=== PATIENT | female | born 1955 | race Caucasian/White ===

== ENCOUNTER → 2024-05-12 09:36 | Outpatient (BNVA) | payer OTHER, MEDICAID, SELFPAY | PROVIDERS: PCP Nurse Practitioner Family; Referring Provider Nurse Practitioner Family; Visit Provider Student in an Organized Health Care Education/Training Program | DX: M17.11 Unilateral primary osteoarthritis, right knee (principal) | CPT/HCPCS: 20610; 99203; J1010 ==

== ENCOUNTER → 2024-09-25 09:05 | Outpatient (BNVA) | payer OTHER, MEDICAID, SELFPAY | PROVIDERS: PCP Nurse Practitioner Family; Referring Provider Nurse Practitioner Family; Visit Provider Student in an Organized Health Care Education/Training Program | DX: M17.11 Unilateral primary osteoarthritis, right knee (principal) | CPT/HCPCS: 99214 ==

== ENCOUNTER 2024-11-13 01:52 | Outpatient (CLI) | payer MEDICARE, MEDICAID, SELFPAY ==
[2024-11-13 10:33] LABS: HCT 41.3 % (36.0-46.0); HGB 12.7 g/dL (11.2-15.7); MCH 27.1 pg (27.0-33.0); MCHC 30.8 % (32.0-36.0); MCV 88 fL (80-95); MPV 10.6 fL (8.0-11.0); Platelet Count 276 10^3/uL (130-400); RBC 4.68 10^6/uL (3.93-5.22); RDW 14.8 % (11.7-14.6); RDW-SD 48.1 fL; WBC 6.05 10^3/uL (4.4-10.8)
[2024-11-13 10:43] LABS: Anion Gap 6.3 mmol/L (3-11); BUN 25 mg/dL (7-18); CO2 30.7 mmol/L (21.0-32.0); CREATININE 1.2 mg/dL (0.55-1.02); Calcium 9.7 mg/dL (8.5-10.1); Chloride 100 mmol/L (98-107); Glucose 96 mg/dL (74-106); Potassium 4.1 mmol/L (3.5-5.1); Sodium 137 mmol/L (136-145)
== END 2024-11-13 01:53 | disposition home or self-care (01) ==
LOC: LBO 01:54
PROVIDERS: PCP Nurse Practitioner Family; Visit Provider Student in an Organized Health Care Education/Training Program
DX: Z01.818 Encounter for other preprocedural examination (principal); M17.11 Unilateral primary osteoarthritis, right knee
CPT/HCPCS: 36415; 80048; 85027; 99024

== ENCOUNTER 2024-11-13 14:33 | Outpatient (CLI) | payer MEDICARE, MEDICAID, SELFPAY ==
--- NOTE | 2024-11-13 09:00 | DI.RAD_ITS ---
Exam(s) XR STANDING ALIGNMENT EXAM: XR STANDING ALIGNMENT CLINICAL HISTORY: TKR Planning. TECHNIQUE: 2D digital imaging was performed. Standing AP views were performed from the pelvis throu gh the ankles. COMPARISON: CR XR KNEE 3V RT from 02/26/2024 FINDINGS: BONES: No acute fracture is present. No bony destructive lesion is seen. Leg length discrepancy: The left femoral head projects approximately 5 millimeters superior to the r ight. JOINTS: Knees: Severe narrowing of the lateral femoral tibial joint space of the right knee with sangeeta articular spurring. The medial joint space is maintained. Mild valgus angulation. The left knee rubina int spaces are maintained. The ankle joints are unremarkable. The hip joints are unremarkable. SOFT TISSUE: Normal. IMPRESSION: Severe degenerative changes of the lateral femoral tibial joint space of the right knee. Mild overall leg length discrepancy. DATA REPOSITORY: RADIATION DOSE DELIVERED:
== END 2024-11-13 14:34 | disposition home or self-care (01) ==
LOC: DIORS 14:34
PROVIDERS: PCP Nurse Practitioner Family; Visit Provider Physician Assistant
DX: M17.11 Unilateral primary osteoarthritis, right knee (principal); Z01.818 Encounter for other preprocedural examination
CPT/HCPCS: 36415; 80048; 85027; 99024; 77073

== ENCOUNTER 2024-11-25 16:24 | Observation (INO) | payer MEDICARE, MEDICAID, SELFPAY ==
[2024-11-25] VITALS (50 sets, daily range): BP systolic 83–168; BP diastolic 43–102; PULSE 64–91; RESP 10–30; TEMP 35.8–37.1; O2SAT 80–98; BMI 32.1
--- NOTE | 2024-11-25 07:19 | PDOC.DSDIS_ITS ---
Date of service: 11/25/24 Discharge Plan Disposition Patient Disposition: Home W/Home Health Services Condition: Good Discharge Details Reason For Visit: Right knee DJD Admit Date/Time: 11/25/24 16:24 Admit Provider: Christian Bowles Attending Provider: Christian Bowles [facility] Hospital Course: Patient was admitted to the medical/surgical floor following the procedure. The surgery was tolerated well without any notable medical, surgical, or anesthetic complications. She did have some persistent hypoxemia with rest and some weakness in her legs along some nausea which resolved overnight. Mobilization began postoperatively. She was voiding spontaneously. Vitals were stable. Physical therapy worked with the patient and was cleared for discharge home. No acute medical issues. Pain was controlled on oral regimen. Home Meds and New Rx's Prescriptions: New celecoxib [Celebrex] 200 mg capsule 200 mg PO BID PRNQty: 60 0RF Rx Instructions: Take one tablet twice daily for pain and inflammation aspirin 81 mg tablet,delayed release (DR/EC) 81 mg PO BID 30 Days Qty: 60 0RF acetaminophen 500 mg tablet 1,000 mg PO Q8H PRN Qty: 90 0RF Rx Instructions: Take two tablets up to every 8 hours as needed for pain dexamethasone 4 mg tablet 4 mg PO DAILY Qty: 2 0RF Rx Instructions: Take one tablet once daily for two days docusate sodium [Colace] 100 mg capsule 100 mg PO BID Qty: 30 0RF gabapentin 300 mg capsule 300 mg PO QHS Qty: 14 0RF Rx Instructions: Take one tablet at bedtime oxycodone 5 mg tablet 5 mg PO Q4H PRNQty: 18 0RF Rx Instructions: Take one tablet up to every 4 hours as needed for severe postoperative pain Continued levothyroxine 50 mcg capsule 50 mcg PO DAILY lisinopril 10 mg tablet 10 mg PO DAILY omeprazole 20 mg capsule,delayed release(DR/EC) 20 mg PO DAILY Metamucil 3.4 gram/5.4 gram powder 1 tbsp PO DAILY Rx Instructions: mix into at least 8 oz of water or juice before administering diphenhydramine HCl [Allergy (diphenhydramine)] 25 mg capsule 25 mg PO QHS PRN Discontinued meloxicam 15 mg tablet 15 mg PO DAILY Discharge Instructions Additional Instructions: Total Knee Discharge Instructions Activity: The most important activity is to walk and to work on gentle motion (both flexion and extension). You should try to take short walks a few times a day. It is important that when resting you work on keeping the knee straight. Avoid putting a pillow behind the knee as this will encourage flexion. Work on range of motion exercises as provided by Physical Therapy. - Start outpatient physical therapy within 2 weeks. - You should wear the CINDY hose on both legs for 2 weeks. You may remove these at night. You may also use any compression sock in place of the CINDY hose. - Utilize [employer] to review exercises, see videos on exercises and obtain basic information pertaining to your surgery and your recovery. Dressing: Remove the Klever wrap by 2 days after your surgery and put on the CINDY stocking given to you from the hospital. Keep the surgical dressing (underneath the KLEVER wrap) in place for at least one week. After the first week it may be removed and replaced with light gauze and tape or nothing. The wound and dressing may get wet after 3 days but avoid soaking the dressing or otherwise it will need to be changed. Many people prefer covering the dressing with cling wrap (saran wrap) to minimize it from getting soaked. If it gets wet, just pat dry. If it starts to peel off then it will need to be changed. Medications: - You should take Tylenol and anti-inflammatory Celebrex as your primary pain control medications. If the Celebrex is too expensive or not covered, please call the office for another alternative (Advil/Ibuprofen or Naproxen/Aleve) - You have been prescribed a stronger pain medication Oxycodone for breakthrough pain, take as needed as prescribed. - You take a stomach acid reduction agent Omeprazole at baseline - continue with this medication to help reduce stomach acid and reflux. - You have been prescribed Gabapentin to take at night for restlessness and nerve pain. - You will be taking Aspirin 81mg twice a day for DVT prevention unless instructed otherwise. - You have also been prescribed Decadron to take to control post-operative nausea and pain. You will start this tomorrow. - If you have constipation you should take Colace (which has been prescribed) or Miralax (which is available [id number]). It takes most people 3-4 days to have a bowel movement. Follow-up: 2 weeks If you have any acute concerns or questions, please do not hesitate to contact the office at [phone]. You may contact Dr. Bowles with any questions after hours through the hospital at [phone] or on his cell phone at [phone]. 1. Encounter Date and Reason I certify that Jennifer Pickard was seen by Christian Bowles MD on 11/26/24 and that I had a [id number] encounter with this patient that meets the physician face to face encounter requirements. 2. Clinical Findings Supporting Skilled Need and Homebound Status I certify that home health services are medically necessary, include either intermittent penitentiary and/or physical/speech therapy, and that this patient is homebound in that absences from the home require considerable and taxing effort and are infrequent or of short duration, or are attributable to the need to receive medical care. [X] (a) Attached documentation from encounter provides clinical findings supporting skilled need and homebound status (including what assistance patient requires to leave the home). The encounter with the patient was in whole, or in part, for the following medical condition, which is the primary reason for home health care: Right knee DJD Intermediate: Physical Therapy: Kate would benefit from home health physical and Occupational Therapy as she recovers from knee replacement. She has notable weakness and gait abnormalities. She is weightbearing as tolerated with assistive devices. Initial physical therapy should focus on range of motion and quadricep strengthening as well as independent ambulation. Speech Therapy: Homebound: Kate is unable to leave her home unassisted due to weakness and gait dysfunction. 3. Certification and Authentication I certify that I composed the above information based on my clinical judgement relating to this patient's medical condition and, if applicable, clinical findings communicated to me by the NPP or inpatient physician who performed the Home Health Referral. All further orders will be obtained through Dr. Bowles Stand Alone Forms: Anesthesia Discharge Inst., Anes.Nerve Block Instructions, Tashia Liang ([facility]) Referrals: Christian Bowles MD [ [facility] STAFF PHYSICIAN] - 12/08/24 9:30 am Activity:: Activity as Tolerated Equipment/Supplies:: Walker Diet:: As Tolerated Discharge Orders Discharge Orders: Discharge Order (Routine); Ordered 11/26/24 Ordered By: Christian Bowles
--- NOTE | 2024-11-25 07:47 | W.ANESPRE ---
General Info Date of Service Date Performed: 11/25/24 Height: 5 ft Weight: 74.7 kg Body Mass Index (BMI): 32.1 Surgical Procedure: Operation Date: 11/25/24 08:25 Proposed Procedure Side Surgeon p Knee Total Arthroplasty w/OrthAlign Right Christian Bowles MD Actual Procedure Side Surgeon p Knee Total Arthroplasty w/OrthAlign Right Christian Bowles MD Pre-Op Diagnosis Post-Op Diagnosis Osteoarthritis of right knee Meds Allergies and Home Medications Allergies Allergy/AdvReac Type Severity Reaction Status Date / Time animal dander Allergy Mild sneezing Verified 11/24/24 12:34 house dust Allergy Mild sneezing Verified 11/24/24 12:34 Home Medication ?Medication ?Instructions ?Recorded levothyroxine 50 mcg capsule 50 mcg PO DAILY 03/05/24 lisinopril 10 mg tablet 10 mg PO DAILY 03/05/24 omeprazole 20 mg capsule,delayed 20 mg PO DAILY 03/05/24 release diphenhydramine HCl 25 mg capsule 25 mg PO QHS PRN 11/13/24 (Allergy (diphenhydramine)) psyllium husk 3.4 gram/5.4 gram 1 tbsp PO DAILY 11/13/24 oral powder (Metamucil) acetaminophen 500 mg tablet 1,000 mg (2 x 500 mg) PO Q8H PRN 11/25/24 pain #90 tabs aspirin 81 mg tablet,delayed 81 mg PO BID 30 days #60 tabs 11/25/24 release celecoxib 200 mg capsule (Celebrex) 200 mg PO BID PRN #60 caps 11/25/24 dexamethasone 4 mg tablet 4 mg PO DAILY #2 tabs 11/25/24 docusate sodium 100 mg capsule 100 mg PO BID #30 caps 11/25/24 (Colace) gabapentin 300 mg capsule 300 mg PO QHS #14 caps 11/25/24 oxycodone 5 mg tablet 5 mg PO Q4H PRN #18 tabs 11/25/24 Current Visit Medications: Current Medications Generic Name Dose Route Start Last Admin Trade Name Freq PRN Reason Stop Dose Admin Acetaminophen 1,000 mg 11/25/24 06:00 Acetaminophen 500 Mg Tab PO 11/25/24 23:59 PREOP HENRI Celecoxib 400 mg 11/25/24 06:00 Celecoxib 200 Mg Cap PO 11/25/24 23:59 PREOP HENRI Droperidol 0.625 mg 11/25/24 07:02 Droperidol 2.5 Mg/Ml Vial IVP 12/25/24 07:01 DIRECTED PRN Ephedrine Sulfate 0 mg 11/25/24 07:02 Ephedrine 25 Mg/5 Ml Syringe IVP 12/25/24 07:01 DIRECTED PRN Fentanyl 0 mcg 11/25/24 07:02 Fentanyl 100 Mcg/2 Ml Vial IVP 12/25/24 07:01 DIRECTED PRN Gabapentin 300 mg 11/25/24 06:00 Gabapentin 300 Mg Cap PO 11/25/24 23:59 PREOP HENRI Hydromorphone HCl 0 mg 11/25/24 07:02 Hydromorphone 2 Mg/Ml Syr IVP 12/25/24 07:01 DIRECTED PRN Hydromorphone HCl 0.5 mg 11/25/24 07:15 Hydromorphone 2 Mg/Ml Syr IVP 12/25/24 07:14 Q2H PRN PRN Ringer's Solution 1,000 mls @ 80 mls/hr 11/25/24 06:00 IV 11/25/24 23:59 INFUSION HENRI Cefazolin Sodium/Dextrose 2 gm in 50 mls @ 100 mls/hr 11/25/24 06:00 Ancef Duplex IVPB 11/25/24 23:59 PREOP HENRI Tranexamic Acid/Sodium Chloride 1,000 mg in 100 mls @ 600 mls/hr 11/25/24 06:00 IVPB 11/25/24 23:59 PREOP HENRI Cefazolin Sodium/Dextrose 1 gm in 50 mls @ 100 mls/hr 11/25/24 08:00 Ancef Duplex IVPB 11/26/24 00:29 Q8H HENRI IV Miscellaneous Supplies 1 each 11/25/24 06:00 Iv Access IV 11/25/24 23:59 DIRECTED HENRI Naloxone HCl 0 mg 11/25/24 07:02 Naloxone 0.4 Mg/Ml Vial IVP 12/25/24 07:01 PRN PRN Oxycodone HCl 0 mg 11/25/24 07:15 Oxycodone 5 Mg Tab PO 12/25/24 07:14 Q3H PRN PRN Pain Sodium Chloride 0 ml 11/25/24 06:00 Normal Saline Flush 10 Ml Syr IV 11/25/24 23:59 PRN PRN Sodium Chloride 0 ml 11/25/24 06:00 Normal Saline 10 Ml Vial IJ 11/25/24 23:59 DIRECTED PRN Sterile Water 0 ml 11/25/24 06:00 Water,Injection,Sterile 10 Ml Vial IJ 11/25/24 23:59 DIRECTED PRN PFSH Active Problems Active Problems: Problem Status Onset Code Hypertension Chronic I10 Osteoarthritis of right knee Acute M17.11 Hypothyroidism Chronic E03.9 Medical History Medical History Hemorrhage of rectum and anus Diverticular disease Allergic rhinitis Surgical History Surgical History 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 thyroidectomy Tobacco Smoking/Tobacco Use Status: Never Alcohol Alcohol Intake: never Substance Use Substance use: Never Substance use type: does not use Vital Signs and Lab Results Vital Signs Most Recent Vital Signs in EMR: Most Recent Vital Signs Temp Pulse Resp BP Pulse Ox 36.3 C L 76 18 155/56 H 97 11/25/24 07:21 11/25/24 07:21 11/25/24 07:21 11/25/24 07:21 11/25/24 07:21 Lab Results Blood Type / Crossmatch: No Data to Display Complete Blood Count: White Blood Count 6.05 10^3/uL (4.4-10.8) 11/13/24 10:25 Red Blood Count 4.68 10^6/uL (3.93-5.22) 11/13/24 10:25 Hemoglobin 12.7 g/dL (11.2-15.7) 11/13/24 10:25 Hematocrit 41.3 % (36.0-46.0) 11/13/24 10:25 Platelet Count 276 10^3/uL (130-400) 11/13/24 10:25 Complete Metabolic Panel: Sodium 137 mmol/L (136-145) 11/13/24 10:25 Potassium 4.1 mmol/L (3.5-5.1) 11/13/24 10:25 Chloride 100 mmol/L (98-107) 11/13/24 10:25 Carbon Dioxide 30.7 mmol/L (21.0-32.0) 11/13/24 10:25 BUN 25 mg/dL (7-18) H 11/13/24 10:25 Creatinine 1.2 mg/dL (0.55-1.02) H 11/13/24 10:25 Est GFR (CKD-EPI 2020) 49.00 (mL/min/1.73m2) 11/13/24 10:25 Calcium 9.7 mg/dL (8.5-10.1) 11/13/24 10:25 Glucose 96 mg/dL (74-106) 11/13/24 10:25 Liver Function Panel: No Data to Display Coagulation Panel: No Data to Display Cardiac Panel: No Data to Display Arterial Blood Gas: No Data to Display Venous Blood Gas: No Data to Display Pancreas Panel: No Data to Display Thyroid Panel: No Data to Display Infectious Disease: No Data to Display Blood Cultures: No Data to Display Toxicology Panel: No Data to Display Anesthesia Assessment and Plan Anesthesia History Personal History: Delayed Emergence Family History: No Family History of Anesthesia Complications Exercise Tolerance Exercise Tolerance: Metabolic Equivalents>4 Pertinent Negatives Pertinent Negatives: No Symptoms of GERD Cardiac & Pulmonary Exam Cardiac Exam: Normal S1/S2 Heart Sounds Pulmonary Exam: Clear Bilateral Breath Sounds Implantable Cardiac Device Does patient have a Pacemaker or an ICD?: No Airway Exam Known Difficult Airway: No Mallampati Class: 2 Mouth Opening: Normal (> 3cm) Thyromental Distance: Greater than 3 cm Neck Range of Motion: Full ROM Neck Circumference: Thick Teeth Condition: Normal Dentition ASA Classification ASA Score: ASA 2 Emergency Case?: No NPO Status NPO Status: NPO Clears >2 hours, Solids >8 hours Anesthesia Plan Resuscitation Status: Full Code Anesthesia Technique: Spinal Anesthesia Airway Planned: Natural Airway Pain Management: Surgeon and patient request nerve block Monitors Used: Standard Monitors
[2024-11-25] MEDS: Acetaminophen 500 MG TAB 1000 MG PO ×2 (07:48→19:50)
[2024-11-25] MEDS: Gabapentin 300 MG CAP PO ×2 (07:48→19:50)
[2024-11-25] MEDS: Celecoxib 200 MG CAP 400 MG PO (07:48)
[2024-11-25] MEDS: Lactated Ringers 1,000 ML 80 ML IV ×2 (07:54→17:20)
--- NOTE | 2024-11-25 08:25 | W.ANESNERVE ---
Nerve Block Single Injection Procedure Date and Time Date Performed: 11/25/24 Procedure Start: 08:11 Location Where Procedure Performed Procedure Location: Day Surgery Unit Reason Performed: Postoperative Analgesia Requesting Provider: Christian Bowles Timeout Performed Timeout Performed: Yes Monitoring Used ECG, Blood Pressure, SpO2 and See EMR for corresponding vital signs Sterility Sterility: Hand Hygiene, Surgical Cap, Surgical Mask, Sterile Gloves and Chlorhexidine Sedation Given During Procedure Sedation Given (Indicate Dose Given): Versed IV Dose:: 3mg IVP Patient Mental Status Patient Mental Status: Sedate with meaningful communication Nerve Block 1st Nerve Block: Laterality: Right Block Type: Adductor Canal Ultrasound Image Saved?: Yes Needle / Catheter Used: 100mm SonoPlex II Local Anesthetic Bolus (Indicate Dose Given): Lidocaine used for local infiltration of skin, Injected in 3-5ml increments after negative blood aspiration and Ropivacaine 0.5% Dose:: 0.5%/25cc (125mg) Additives (Indicate Dose Given): Epinephrine to make 1:200,000 (5mcg/ml) Dose:: 125mcg and Decadron Dose:: 10mg PF Ultrasound: Sterile probe cover and gel used Nerve Stimulator: Supplement to Ultrasound use Paresthesia: None Procedure Tolerated: No Complications and Patient tolerated well Procedure Outcome: Successful Performed By: Sylvester Cotto
[2024-11-25] MEDS: ceFAZolin 2 GM/50 ML BAG IVPB (09:25)
[2024-11-25] MEDS: TRANEXAMIC ACID/SOD. CHL. 1,000 MG/100 ML BAG 600 MG IVPB (09:35)
--- NOTE | 2024-11-25 10:42 | W.PM.OP ---
Operative Note Operative Note PRE-OP DIAGNOSIS: Right Knee Osteoarthritis POST-OP DIAGNOSIS: same PROCEDURE: Right Total Knee Replacement with Intraoperative Navigation SURGEON: Christian Bowles MICROFILMING DOCUMENT PREPARER: Maeve Unger ANESTHESIA TYPE: Spinal Refer to Anesthesia Record ESTIMATED BLOOD LOSS: 50 PATHOLOGY: none sent TOURNIQUET TIME: 0 COMPLICATIONS: None Patient was transported to: PACU Patient's condition: stable Implants: 1. Depuy Attune Cementless Cruciate Retaining Femoral Component, Size 5 2. Depuy Attune Cementless Fixed Bearing Tibial Component, Size 3 3. Depuy Attune 5x7mm CR/FB Poly Indications: I have seen Kate in clinic for symptoms of RIGHT knee arthritis, confirmed with radiographic findings. She has exhausted nonoperative methods and was having significant limitations in daily function and desired better function and less pain. I discussed the technical details of a knee replacement. I explained the risks of the procedure to include, but not limited to, bleeding, infection, pain, stiffness, fracture, damage to nerves and vessels, damage to muscles and tendons, loosening, need for repeat procedure, blood clot and cardiopulmonary demise. Despite these risks, Kate elected to proceed. Findings: There was significant signs of arthritis throughout the knee, mostly involving the lateral compartment, but also medially. Minimal central chondromalacia of the patella with no maltracking, thus resurfacing not performed. Procedure Description: Kate was greeted in the preoperative holding area where the correct side was identified and marked. The consent was reviewed with the patient and signed. The history and physical was updated. All questions were answered. Preoperative mediacations were administered: Acetaminophen 1000mg, Celebrex 400mg, and Gabapentin 300mg. An adductor canal block was then administered by the anesthesia team in the D[facility]. She was taken back to the operating room. A spinal anesthestic was then administered. The patient was placed into the supine position on the operating room table. Posts were placed for positioning during the procedure. All bony prominences were well padded. Prophylactic antibiotics in the form of Cefazolin were administered. 1g of Tranxemic Acid was given intravenously within 30 minutes of incision. The right leg was then prepped with Chloraprep and draped in a standard fashion with impervious stockinette. A second prep with Chloraprep was performed prior to application of Iodine impregnated skin protection. A timeout to confirm correct identity, side and site, procedure, allergies, anesthesia, and medical concerns was performed. With the knee in some flexion, a midline incision was made overlying the knee. Full thickness skin flaps were raised once the extensor mechanism was encountered. These were raised medially and laterally. Any bleeding was controlled with electrocautery. Once the extensor mechanism was fully exposed, a medial parapatellar arthrotomy was performed in a flexed position. All bleeding from the arthrotomy and the geniculate arteries was coagulated. A medial subperiosteal peel was performed with electrocautery to the midcoronal plane. The fat pad was removed while keeping the patellar tendon protected. The anterior distal femur synovium was removed for later visualization. The ACL and PCL were resected and the anterior horn of the lateral meniscus was transected. The knee was then flexed with the patella everted. The patella showed minimal chondromalacia centrally. A single starting pin was then placed 1cm anterior to the PCL insertion and the notch in the direction of the femoral head. The OrthoAlign device was applied over the pin. It was oriented to be in line with the epicondylar axis and the trochlear groove. It was then pinned into place. The navigation computer was then turned on and calibrated. The distal femur cut was set at 0 degrees varus/valgus and 3.5 degrees flexion. The distal femur cutting guide then was positioned for a 9mm cut. The distal femur was cut with an oscillating saw while protecting the soft tissues. The tibia was then addressed. The OrthoAlign device was placed over the tibial tubercle and medial tibia and secured into position. Once again, OrthoAlign was calibrated and then set for a 0.5 degree varus cut and 5.5 degrees of posterior slope. With this locked into position, the cut thickness stylus was used to assess cut thickness. The lateral side, most involved side, was set for a 5mm cut. This was then held in position and pinned into place with 2 additional pins and a cross pin for stability. The medial and lateral collateral ligaments were protected and the cut was performed. With this completed, it was assessed and noted to be of appropriate dimensions. The guide and OrthoAlign was removed. A spacer block was inserted and the knee was brought into extension to ensure enough space was present. . The Orthoalign gap balancing device was then placed in extension. This was used to ensure that the ligaments were properly balanced with up to 2 to 3 mm laxity laterally compared medially. The extension gap was measured as 20mm. The knee was then brought into 90 degrees of flexion and the ligament cosmetologist apprentice was once again placed. Under the same amount of force the flexion gap was measured. The Attune specific jig was placed and the flexion gap was made to match the extension gap. The femur was then sized as a size 5. The 4-in-1 cutting guide was the placed. An rashaun wing was used to confirm appropriate position of the anterior cut to avoid notching. This cutting guide was ensured to be flush on the cut surface and then pinned into place with headed pins. While protecting the soft tissues, quad tendon, and collateral ligaments, the anterior and posterior cuts were performed with a saw. The central two pins were removed and the posterior and anterior chamfers were cut next. The notch-cutting guide was placed. This was pinned to lateralize the femoral component as much as possible while keeping it flush on the cut surface. This was then pinned into position. A saw was used to make the notch cut. A rasp smoothed the cut surfaces. The medial and lateral menisci were removed. A trial femoral component was then inserted, impacted down to the cut surfaces, and the lug holes were drilled. A provisional trial tibial component was placed and the knee was brought through range of motion. The polyethylene was trialed until there was good flexion and extension with excellent stability to the medial and lateral collaterals. The patella was tracking without thumbs. A size 7mm polyethylene component provided the best range of motion and stability with less than 2mm gapping with medial and lateral stress and full extension without significant hyperextension. The femoral lugs were drilled. The tibial cut surface was fully exposed. The tibia was then sized as a 3. The tibia had been previously marked during trialing to correspond to the center of the tibial component to help with rotation. The trial was aligned to this kala, approximately rotated to the medial 1/3rd of the tibial tubercle. The trial was pinned into place. The tibia was prepared with a reamer and a keel punch and lug holes. The trial components were removed. The final components were opened on the back table. The periosteal and capsular tissues, especially posteriorly, around the knee were then systematically injected with a periarticular cocktail consisting of 246mg of Ropivacaine, 0.5mg of Epinephrine, 0.08mg of Clonidine, and 30mg of Ketorolac, diluted to 100cc. On the back table, with the implants opened, the cement was mixed. One batch of high viscosity cement was prepared with vacuum assistance. After the cement was ready a small amount was placed on the cut surface of the patella and the patellar button was clamped into position and held. While the cement was hardening, the cementless knee components were placed. Starting with the tibial component, the tibia was subluxed anteriorly and the lug holes of the component were lined up. The tibia was then impacted with an impactor and mallet until the tibial component was in contact with the tibia. Then, the femoral component was inserted. The lug holes were aligned and the component was impacted into position. The final polyethylene component was inserted. The knee was irrigated with Surgiphor Betadine solution. This was allowed to sit in the knee for 3 minutes and then it was thoroughly irrigated out with saline. After the cement had finally cured, approximately 15min, the clamp was removed from the patella and the knee was taken through range of motion. The patella was tracking with a no-thumbs technique. The capsule was then reapproximated with a No. 1 Vicryl at multiple locations. The capsule was finally closed with a No. 2 Stratafix, barbed suture. Deep tissues were then reapproximated with 0 Vicryl and 2-0 Vicryl. The skin was closed with a running 3-0 Monocryl in a subcuticular fashion. This was reinforced with skin glue. A Mepilex silver dressing was applied along with a lugm-yw-eleio HOMERO wrap. A CryoCuff was applied. Kate was transferred to the hospital bed without difficulty an suffering no apparent complication. Kate has a good prognosis. Physical therapy will start today and without restrictions, weight-bearing as tolerated. Aspirin 81mg BID will be used for DVT prophylaxis. Date of Procedure: 11/25/24
[2024-11-25] MEDS: fentaNYL 100 MCG/2 ML VIAL IVP ×2 (11:22→11:32)
--- NOTE | 2024-11-25 14:44 | W.ANESPOSTOP ---
Postoperative Evaluation Date, Time and Location Date Performed: 11/25/24 Time Performed: 14:45 Patient Location: Day Surgery Unit Vital Signs Most Recent Imported Vital Signs: Most Recent Vital Signs Temp Pulse Resp BP Pulse Ox 36.5 C 68 18 132/75 93 11/25/24 12:15 11/25/24 12:15 11/25/24 12:15 11/25/24 12:15 11/25/24 12:15 Pain Score Most Recent Pain Score: Most Recent Pain Score Pain Level 3 11/25/24 12:15 Assessment Mental Status: Awake (Alert & Oriented to Patient Baseline) Airway and Respiratory Function: Patent airway with normal (patient baseline) respiratory exam Cardiovascular Function: Hemodynamically Stable Hydration Status: Adequately Hydrated Nausea & Vomiting: No Nausea or Vomiting Pain: Pt. Denies Any Pain Peripheral Nerve Block: Regional nerve block not resolved at time of post operative discharge
[2024-11-25] MEDS: Normal Saline Flush 10 ML SYR IV (15:35)
[2024-11-25] MEDS: ceFAZolin 1 GM/50 ML BAG IVPB ×2 (16:40→23:28)
--- NOTE | 2024-11-25 17:57 | PT.INIE ---
PT Notes Visit Reasons: Right knee DJD Physical Therapy Day Surgery Initial Evaluation Date: 11/25/2024 Referring Doctor: Maeve Unger PT Orders: PT CONSULT: Status post Ortho consult Precautions: Weightbearing as tolerated right lower extremity Patient Profile/Admitting Diagnosis: Patient is 69-year-old female presented status post elective right TKA by Dr. Bowles under spinal anesthesia. 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 Patient resides on the first floor and her daughter resides on the second floor. Patient reports independent with ambulation, ADLs, cooking, home management prior to surgery. Equipment Owned/DME: Cane, standard walker Subjective: Patient reports she purchased standard walker at a [employer]. She reports being sleepy Objective: [] General Observation: Patient presented semireclined on stretcher with Cryo/Cuff to right knee, daughter present. Mental Status: Alert and oriented, cooperative able to follow directions agreeable to participate Pain: Right knee 2/10 after pain meds ROM: [] Right Upper Extremity: [] WNL Left Upper Extremity: WNL Right Lower Extremity: WNL except knee 0 to 100 degrees Left Lower Extremity: WNL Strength: [] Right Upper Extremity: Grossly 5/5 Left Upper Extremity: [] Grossly 5/5 Right Lower Extremity: Glutes 3 -/5, quads 3 -/5, able to perform quad set without compensation, positive lag for short range straight leg raise Left Lower Extremity: Grossly 3/5 Sensation: Intact Bed Mobility/Transfers: [] Supine to sit min assist of 1 Sit to supine max assist of 2 Sit to stand min assist of 1 Stand to sit min assist of 1 Bed to chair max assist of 2 secondary bilateral lower extremities buckling Gait: Unable secondary bilateral lower extremities buckling Balance: [] Static Sitting: Fair Dynamic Sitting: Fair minus Static Standing: Fair minus Dynamic Standing: Poor Special Tests: [] Mobility Limitations Standardized Measure [] [facility] AM-PAC 6 clicks Basic Mobility Inpatient Short Form: [] Raw Score: 12 CMS Score: 68.66% Informed Consent/Education: Patient instructed in purpose of PT consult. Packet containing TKA exercise protocol has been given to patient. Education and training on initial set of exercises that can be done at home have been completed with patient. Treatment: [id number] and training on initial set of exercises that can be done at home have been completed with patient. [id number] Sit to stand x 4 trials at FWW with min assist of 1, SBA of 1 Patient able to sustain standing static with bilateral upper extremity support on FWW with contact-guard assist surface to surface transfers with FWW with max assist of 2 x 3 trials noted bilateral lower extremity buckling patient unable to sustain left knee extension to unweight right lower extremity. Assessment: Patient is 69-year-old female demonstrating poor motor control bilateral lower extremities in standing position with noted buckling bilateral knees with any attempt to advance lower extremities. Patient is at increased risk for falls at current level patient also noted with low O2 sats per nursing when at rest. Patient presents with clinical signs and symptoms consistent with current/admitting diagnoses that have resulted to mobility limitations, gait instability, generalized weakness, and impairment of motor control as demonstrated by the following impairment level findings: 1. Decreased strength to right knee major muscle groups 2. Impaired standing balance 3. Limitation of joint range of motion in right knee Impairments are contributing to the following functional limitations: 1. Inability to safely ambulate without assistive device 2. Increase completion time for mobility ADL performance 3. Increased fall risk 4. Decline in bed mobility skills 5. Decline transfer skills 6. Difficulty performing stairs without assistance Patient is assessed as a moderate complexity based on the following: History: 69-year-old female with impairment level findings, functional limitations, and past medical history as indicated above Examination: Demonstrable impairment in strength, balance, and mobility level with underlying impairments and functional limitations as documented above Presentation: Evolving Decision Making: Moderate Goals: 1. Supervised bed mobility 2. Supervised transfers with FWW 3. Supervised ambulation with FWW greater than 50 feet 4. Supervised 3 steps with rail to safely enter and exit home 5. Supervised home exercise program per TKA protocol Plan of Care/Treatment Plan: PT evaluation and 1-2 treatment session only for functional mobility training using recommended AD and for HEP instruction. DISCHARGE RECOMMENDATIONS: Home with home health PT and transition to outpatient PT as scheduled TREATMENT CODE/TIME: 27982, [id number], [id number], 16 Thank you for the opportunity to participate in the care of this patient. Lizabeth Galdamez, PT [facility]
[2024-11-25] MEDS: Celecoxib 200 MG CAP PO (19:49)
[2024-11-25] MEDS: Aspirin E.C. 81 MG TABEC PO (19:49)
[2024-11-26 03:22] VITALS: BP 123/68; PULSE 67; RESP 16; TEMP 36.5; O2SAT 96
[2024-11-26] MEDS: Levothyroxine 50 MCG TAB PO (05:31)
[2024-11-26 07:36] VITALS: BP 128/67; PULSE 63; RESP 16; TEMP 36.6; O2SAT 98
[2024-11-26] MEDS: Celecoxib 200 MG CAP PO (07:46)
[2024-11-26] MEDS: Dexamethasone 4 MG TAB PO (07:48)
[2024-11-26] MEDS: Omeprazole 20 MG CAPCR PO (07:48)
[2024-11-26] MEDS: Aspirin E.C. 81 MG TABEC PO (07:48)
[2024-11-26] MEDS: Acetaminophen 500 MG TAB 1000 MG PO (07:48)
[2024-11-26] MEDS: ceFAZolin 1 GM/50 ML BAG IVPB (07:49)
[2024-11-26] MEDS: Lisinopril 10 MG TAB PO (08:15)
--- NOTE | 2024-11-26 09:15 | W.PM.DS.N ---
Date of service: 11/26/24 Time of Service: 09:15 Discharge Plan Disposition Patient Disposition: Home W/Home Health Services Condition: Good Discharge Details Reason For Visit: Right knee DJD Admit Date/Time: 11/25/24 16:24 Admit Provider: Christian Bowles Attending Provider: Christian Bowles [facility]: Patient was admitted to the medical/surgical floor following the procedure. The surgery was tolerated well without any notable medical, surgical, or anesthetic complications. She did have some persistent hypoxemia with rest and some weakness in her legs along some nausea which resolved overnight. Mobilization began postoperatively. She was voiding spontaneously. Vitals were stable. Physical therapy worked with the patient and was cleared for discharge home. No acute medical issues. Pain was controlled on oral regimen. Home Meds and New Rx's Prescriptions: New celecoxib [Celebrex] 200 mg capsule 200 mg PO BID PRNQty: 60 0RF Rx Instructions: Take one tablet twice daily for pain and inflammation aspirin 81 mg tablet,delayed release (DR/EC) 81 mg PO BID 30 Days Qty: 60 0RF acetaminophen 500 mg tablet 1,000 mg PO Q8H PRN Qty: 90 0RF Rx Instructions: Take two tablets up to every 8 hours as needed for pain dexamethasone 4 mg tablet 4 mg PO DAILY Qty: 2 0RF Rx Instructions: Take one tablet once daily for two days docusate sodium [Colace] 100 mg capsule 100 mg PO BID Qty: 30 0RF gabapentin 300 mg capsule 300 mg PO QHS Qty: 14 0RF Rx Instructions: Take one tablet at bedtime oxycodone 5 mg tablet 5 mg PO Q4H PRNQty: 18 0RF Rx Instructions: Take one tablet up to every 4 hours as needed for severe postoperative pain Continued levothyroxine 50 mcg capsule 50 mcg PO DAILY lisinopril 10 mg tablet 10 mg PO DAILY omeprazole 20 mg capsule,delayed release(DR/EC) 20 mg PO DAILY Metamucil 3.4 gram/5.4 gram powder 1 tbsp PO DAILY Rx Instructions: mix into at least 8 oz of water or juice before administering diphenhydramine HCl [Allergy (diphenhydramine)] 25 mg capsule 25 mg PO QHS PRN Discontinued meloxicam 15 mg tablet 15 mg PO DAILY Discharge Instructions Additional Instructions: Total Knee Discharge Instructions Activity: The most important activity is to walk and to work on gentle motion (both flexion and extension). You should try to take short walks a few times a day. It is important that when resting you work on keeping the knee straight. Avoid putting a pillow behind the knee as this will encourage flexion. Work on range of motion exercises as provided by Physical Therapy. - Start outpatient physical therapy within 2 weeks. - You should wear the CINDY hose on both legs for 2 weeks. You may remove these at night. You may also use any compression sock in place of the CINDY hose. - Utilize [employer] to review exercises, see videos on exercises and obtain basic information pertaining to your surgery and your recovery. Dressing: Remove the Klever wrap by 2 days after your surgery and put on the CINDY stocking given to you from the hospital. Keep the surgical dressing (underneath the KLEVER wrap) in place for at least one week. After the first week it may be removed and replaced with light gauze and tape or nothing. The wound and dressing may get wet after 3 days but avoid soaking the dressing or otherwise it will need to be changed. Many people prefer covering the dressing with cling wrap (saran wrap) to minimize it from getting soaked. If it gets wet, just pat dry. If it starts to peel off then it will need to be changed. Medications: - You should take Tylenol and anti-inflammatory Celebrex as your primary pain control medications. If the Celebrex is too expensive or not covered, please call the office for another alternative (Advil/Ibuprofen or Naproxen/Aleve) - You have been prescribed a stronger pain medication Oxycodone for breakthrough pain, take as needed as prescribed. - You take a stomach acid reduction agent Omeprazole at baseline - continue with this medication to help reduce stomach acid and reflux. - You have been prescribed Gabapentin to take at night for restlessness and nerve pain. - You will be taking Aspirin 81mg twice a day for DVT prevention unless instructed otherwise. - You have also been prescribed Decadron to take to control post-operative nausea and pain. You will start this tomorrow. - If you have constipation you should take Colace (which has been prescribed) or Miralax (which is available [id number]). It takes most people 3-4 days to have a bowel movement. Follow-up: 2 weeks If you have any acute concerns or questions, please do not hesitate to contact the office at [phone]. You may contact Dr. Bowles with any questions after hours through the hospital at [phone] or on his cell phone at [phone]. 1. Encounter Date and Reason I certify that Jennifer Pickard was seen by Christian Bowles MD on 11/26/24 and that I had a [id number] encounter with this patient that meets the physician face to face encounter requirements. 2. Clinical Findings Supporting Skilled Need and Homebound Status I certify that home health services are medically necessary, include either intermittent penitentiary and/or physical/speech therapy, and that this patient is homebound in that absences from the home require considerable and taxing effort and are infrequent or of short duration, or are attributable to the need to receive medical care. [X] (a) Attached documentation from encounter provides clinical findings supporting skilled need and homebound status (including what assistance patient requires to leave the home). The encounter with the patient was in whole, or in part, for the following medical condition, which is the primary reason for home health care: Right knee DJD Alf: Physical Therapy: Kate would benefit from home health physical and Occupational Therapy as she recovers from knee replacement. She has notable weakness and gait abnormalities. She is weightbearing as tolerated with assistive devices. Initial physical therapy should focus on range of motion and quadricep strengthening as well as independent ambulation. Speech Therapy: Homebound: Kate is unable to leave her home unassisted due to weakness and gait dysfunction. 3. Certification and Authentication I certify that I composed the above information based on my clinical judgement relating to this patient's medical condition and, if applicable, clinical findings communicated to me by the NPP or inpatient physician who performed the Home Health Referral. All further orders will be obtained through Dr. Bowles Stand Alone Forms: Anesthesia Discharge Inst., [place]annas.Nerve Block Instructions, Tashia Liang (DSU) Referrals: Christian Bowles MD [ [facility] STAFF PHYSICIAN] - 12/08/24 9:30 am Activity:: Activity as Tolerated Equipment/Supplies:: Walker Diet:: As Tolerated Discharge Orders Discharge Orders: Discharge Order (Routine); Ordered 11/26/24 Ordered By: Christian Bowles DS: Summary Time Spent with Patient providing and/or coordinating discharge services: Less than 30 minutes Status at Discharge Functional status at discharge: uses cane/walker Overall status at discharge: patient is progressing back to baseline Mental Status: mental status grossly normal Speech and Movement: speech and movement normal Mood: congruent mood Affect: normal affect Quality:SDOH Health Related Social Needs: No Data to Display Exam Narrative Exam Narrative: Sitting up in the chair. No acute distress. Alert and oriented x 3 Right lower extremity shows a clean dry and intact dressing. She is able to actively extend the right knee without notable lag. Sensation intact to light touch over the deep and superficial peroneal nerve and tibial nerve. Psych Mental Status: mental status grossly normal Speech and Movement: speech and movement normal Mood: congruent mood Affect: normal affect DS: Data Vitals/I&O Vitals and I&O: Vital Signs Temperature 36.6 C 11/26/24 07:36 Temperature Source Temporal Artery Scan 11/26/24 07:36 Pulse 63 11/26/24 07:36 Pulse Rhythm Regular 11/25/24 17:58 Pulse 78 11/25/24 11:36 Respiratory Rate 16 11/26/24 07:36 Respiratory Effort Normal 11/25/24 17:58 Respiratory Depth Normal 11/25/24 17:58 Respiratory Pattern Normal 11/25/24 17:58 Blood Pressure 128/67 11/26/24 07:36 Blood Pressure Mean 125 11/25/24 11:36 Blood Pressure Position Supine 11/25/24 08:03 Pulse Oximetry 98 11/26/24 07:36 Respiratory End-tidal CO2 37 11/25/24 11:36 Oxygen Delivery Method Nasal Cannula 11/26/24 07:36 Oxygen Flow Rate 4 11/26/24 07:36 Pain Level 0 11/26/24 03:22 Comment Pt arrived on floor with 2 L o2 which was DC'd to trial room air s/p surgical procedure. O2 rechecked after 30 minutes while pt sleeping and was at 83%. O2 applied at 2L and O2 only came up to 88%. O2 increased to 4L and pt was sating at 92%. Pt noted to have some mouth breathing and snoring while sleeping 11/25/24 18:40 Intake & Output 11/25/24 11/25/24 11/26/24 11:59 23:59 11:59 Intake Total 1050 / 1696.667 646.667 / 1696.667 70 / 70 Output Total 50 / 50 300 / 300 Balance 1000 / 1646.667 646.667 / 1646.667 -230 / -230 Weight 74.7 kg Intake: IV 1050 / 1696.667 646.667 / 1696.667 10 Oral 60 / 60 Output: Urine 300 / 300 Estimated Blood Loss 50 / 50 Other: Urine Color Straw Yellow Urine Appearance Clear Urine Odor Strong Normal Emesis Description None None PFSH All Active Problems Hypertension (Chronic) Osteoarthritis of right knee (Acute) DEPO MEDROL 05/12/24 Hypothyroidism (Chronic) Medical History Hemorrhage of rectum and anus Diverticular disease Allergic rhinitis Surgical History 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
--- NOTE | 2024-11-26 09:20 | W.NUTRFU ---
Date of service: 11/26/24 Time of Service: 09:20 Nutrition Note NOTE: Eborah admitted after knee repalcement surgery yesterday. discharge anticipated today. Pt weight stable, tolerating regular diet. Initially assessed at low nutrition risk. will follow and monitor for any changes to nutritional status this admission. Time Spent in Nutritional Counseling and Treatment: 0
--- NOTE | 2024-11-26 14:10 | CMPROGNOTE_ITS ---
Date of service: 11/26/24 Time of Service: 14:10 Care Management Progress Note Progress Note Text Progress Note Text: Jennifer was admitted on 11/25/24 and underwent a right total knee replacement. The surgery went well although she was a bit hypoxic and nauseated p ostoperatively. She remained hospitalized overnight and her symptoms resolved. Jennifer worked with PT and was cleared for discharge. She will have home health PT and OT ordered through [facility]. Jennifer was discharged before CM was able to meet with her. Discharge Potential Discharge Needs: Surgical F/U Appt Anticipated Barriers to Discharge: None Identified Patient/Family Education Needs: Review discharge instructions, discuss Ask Me Three Transportation: Private vehicle Plan: Jennifer will be discharged home with new home health services for OT and PT through [facility]. She will follow up with Dr. Bowles and her plan of care and transport with family. Social Determinants of Health Screening Social Determinants of Health last assessed: 11/26/24 Will the Patient Participate in the Screening?: Yes Do you worry about having a steady place to live?: no Problems where you live: no known problems In the past 12 months, have you had to go without electric, gas, oil or water in your home?: no Have you or anyone in your house had to go without enough food to eat?: no Has lack of transportation kept you from medical appointments or from doing things needed for daily living?: no Has anyone in your life made you feel unsafe or unsupported?: no How hard is it for you to pay for the very basics like food, housing, medical care, and heating? Would you say it is:: Not hard at all Do you want help finding or keeping work or a job?: I do not need or want help If for any reason you need help with day-to-day activities such as bathing, preparing meals, shopping, managing finances, etc., do you get the help you need?: I don?t need any help How often do you feel lonely or isolated from those around you?: Never Do you speak a language other than German at home?: No Does the patient want assistance with any of the above?: No
--- NOTE | 2024-11-26 14:14 | PT.INTREAT ---
PT Notes Visit Reasons: Right knee DJD Inpatient Physical Therapy Treatment Note [facility] Date:11/26/2024 PRECAUTIONS: WBAT RLE SUBJECTIVE: Pt reports she feels like a new person today. She states she slept well and was able to get up to the bathroom with the nurse during the night without her legs buckling. OBJECTIVE: Pt alert upright smiling. Pt demonstrates no quad lag with SLR and no compensation for quad set . Dr Stone present for start of session. Anticipate pt will discharge to home today? PAIN:10 right knee VITALS: ?monitored by nursing Therapeutic Activities (75966d[]): Direct one-on-one instruction in dynamic activities to improve functional performance. ? BED MOBILITY/TRANSFERS? Rolling L/R: independent Supine-sit: independent? Sit-supine: independent ? Sit-stand: SBA? Stand-sit:SBA ? Bed-Chair: SBA with FWW ? Chair-bed: SBA with FWW Provided skilled cues and instruction on performance and technique throughout. Gait Training (29550j[]): Direct one-on-one instruction and skilled instruction in: [x] employing an assistive device [] modified weight-bearing status [x] movement sequencing x[] turning and movement with proper form [x] Provided verbal cues for equipment management and technique [x] Provided instruction in gait pattern [x] Patient education regarding pacing and breathing techniques to maximize activity tolerance? GAIT? Assistive Device: FWW ? Weight bearing: Weightbearing as tolerated Assist: SBA? Distance: 200 feet x 1 100 feet x 1? Deviation: Step to pattern decreased knee flexion during swing phase, early heel off right ? STAIRS: 2 steps x 2 trials with rails SBA ? ?step to pattern and cues for sequencing ? Therapeutic Exercises (86071c[]): Direct one-on-one instruction in therapeutic exercises to develop strength, endurance, range of motion and flexibility. ? Exercises ?reviewed TKA program 5 reps able to demonstrate SLR, heelslides , quad sets, LAQ ankle pumps ? Provided skilled instruction in proper exercise performance ASSESSMENT:? Pt demonstrates significant improvement in BLE motor coordination/control now able to perform transfers, ambulation and stairs with SBA without knees buckling. PLAN: 1-2 treatments to review HEP and functional mobility if pt does not discharge to home today TREATMENT CODE/TIME: 74062, 67202, 51769/[id number] DISCHARGE RECOMMENDATION: Home with HHPT then outpatient PT
== END 2024-11-26 10:08 | disposition home health service (06) ==
LOC: MS 17:52
PROVIDERS: Admitting Provider Student in an Organized Health Care Education/Training Program; PCP Nurse Practitioner Family; Visit Provider Student in an Organized Health Care Education/Training Program
PROC: (CPT 27447; principal; 2024-11-25 08:15)
DX: M17.11 Unilateral primary osteoarthritis, right knee (principal); G89.18 Other acute postprocedural pain; M25.561 Pain in right knee; Z79.899 Other long term (current) drug therapy; I10 Essential (primary) hypertension; J30.9 Allergic rhinitis, unspecified; E89.0 Postprocedural hypothyroidism; R09.02 Hypoxemia; R53.1 Weakness; R11.0 Nausea
CPT/HCPCS: 20985; 27447; 00123; 64447; 96365; 96366; 97110; 97116; 97162; 97530; C1776; G0378; J0171; J0690; J1100; J1790; J2003; J2250; J2371; J2401; J2405; J2704; J3010; J8540

== ENCOUNTER 2024-12-08 15:37 | Outpatient (CLI) | payer MEDICARE, MEDICAID, SELFPAY ==
--- NOTE | 2024-12-08 09:43 | DI.RAD_ITS ---
Exam(s) XR STANDING ALIGNMENT EXAM: XR STANDING ALIGNMENT CLINICAL HISTORY: 1ST POST OP R TKA. TECHNIQUE: 2D digital imaging was performed. COMPARISON: CR XR STANDING ALIGNMENT from 11/13/2024 FINDINGS: 3 views There has been interval placement of right knee prosthesis which appears satisfactory. Opposite-left knee appears unremarkable as do both hips and the ankles. SI joints unremarkable. Lower limb bones otherwise appear unremarkable. Normal density. No fractures. No lesions. IMPRESSION: Satisfactory appearance DATA REPOSITORY: RADIATION DOSE DELIVERED:
--- NOTE | 2024-12-08 09:43 | DI.RAD_ITS ---
Exam(s) XR KNEE RT 1V EXAM: XR KNEE RT 1V CLINICAL HISTORY: 1ST POST OP R TKA. TECHNIQUE: 2D digital imaging was performed. COMPARISON: No exams were available for comparison FINDINGS: Single lateral Recently placed prosthesis appears satisfactory on this lateral view. Fracture or obvious loosening. IMPRESSION: Satisfactory appearance DATA REPOSITORY: RADIATION DOSE DELIVERED:
== END 2024-12-08 15:38 | disposition home or self-care (01) ==
LOC: DIORS 15:38
PROVIDERS: PCP Nurse Practitioner Family; Referring Provider Nurse Practitioner Family; Visit Provider Student in an Organized Health Care Education/Training Program
DX: Z96.651 Presence of right artificial knee joint (principal); Z47.1 Aftercare following joint replacement surgery
CPT/HCPCS: 99024; 73560; 77073

== ENCOUNTER → 2025-01-05 09:44 | Outpatient (BNVA) | payer MEDICARE, MEDICAID, SELFPAY | PROVIDERS: PCP Nurse Practitioner Family; Referring Provider Nurse Practitioner Family; Visit Provider Student in an Organized Health Care Education/Training Program | DX: Z47.1 Aftercare following joint replacement surgery (principal); Z96.651 Presence of right artificial knee joint | CPT/HCPCS: 99024 ==

== ENCOUNTER 2025-02-13 12:04 | Day surgery (SDC) | payer MEDICARE, MEDICAID, SELFPAY ==
--- NOTE | 2025-02-13 06:43 | W.ANESPRE ---
General Info Date of Service Date Performed: 02/13/25 Height: 5 ft Weight: 69.4 kg Body Mass Index (BMI): 29.9 Surgical Procedure: Operation Date: 02/13/25 14:40 Proposed Procedure Side Surgeon p Cataract Extraction with IOL Implant Right Ge Chirinos MD Meds Allergies and Home Medications Allergies Allergy/AdvReac Type Severity Reaction Status Date / Time animal dander Allergy Mild sneezing Verified 02/13/25 12:45 house dust Allergy Mild sneezing Verified 02/13/25 12:45 Home Medication ?Medication ?Instructions ?Recorded levothyroxine 50 mcg capsule 50 mcg PO DAILY 03/05/24 lisinopril 10 mg tablet 10 mg PO DAILY 03/05/24 omeprazole 20 mg capsule,delayed 20 mg PO DAILY 03/05/24 release diphenhydramine HCl 25 mg capsule 25 mg PO QHS PRN 11/13/24 (Allergy (diphenhydramine)) psyllium husk 3.4 gram/5.4 gram 1 tbsp PO DAILY 11/13/24 oral powder (Metamucil) acetaminophen 500 mg tablet 1,000 mg (2 x 500 mg) PO Q8H PRN 12/08/24 pain #90 tabs celecoxib 200 mg capsule (Celebrex) 200 mg PO BID PRN pain #60 caps 12/08/24 Current Visit Medications: Current Medications Generic Name Dose Route Start Last Admin Trade Name Freq PRN Reason Stop Dose Admin Acetaminophen 1,000 mg 02/13/25 06:00 Acetaminophen 500 Mg Tab PO 03/15/25 05:59 Q4H PRN PRN Balanced Salt Solution 500 ml 02/13/25 06:00 Balanced Salt Soln.-Plus 500 Ml Bag OP 03/15/25 05:59 DIRECTED HENRI Miscellaneous Medication 0 ml 02/13/25 06:00 Prednisolone 1%, Moxifloxacin 0.5%, Bromfenac 0.09% 5.6ml Btl OD 03/15/25 05:59 DIRECTED HENRI Miscellaneous Medication 0 ml 02/13/25 06:00 Tropicam./Phenyleph. (1/2.5%) 5 Ml Btl OD 03/15/25 05:59 DIRECTED HENRI Tetracaine HCl 0 ml 02/13/25 06:14 Tetracaine 0.5% 4 Ml Btl OD 03/15/25 06:13 DIRECTED [facility] Active Problems Active Problems: Problem Status Onset Code Posterior subcapsular age-related cataract, right eye Acute H25.041 Nuclear age-related cataract, right eye Acute H25.11 History of total right knee replacement Acute 11/25/24 Z96.651 Hypertension Chronic I10 Hypothyroidism Chronic E03.9 Medical History Medical History (Updated 02/12/25 @ 19:53 by Ge Chirinos MD) GERD (gastroesophageal reflux disease) Hemorrhage of rectum and anus Diverticular disease Allergic rhinitis Surgical History Surgical History (Updated 02/11/25 @ 11:02 by Raad Fernandez) Hx of tubal ligation History of [facility] H/O partial thyroidectomy 2007 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 thyroidectomy Tobacco Smoking/Tobacco Use Status: Never Alcohol Alcohol Intake: never Substance Use Substance use: Never Substance use type: does not use Vital Signs and Lab Results Vital Signs Most Recent Vital Signs in EMR: Temp Pulse Resp BP Pulse Ox 36.4 C L 76 16 165/75 H 99 02/13/25 12:38 02/13/25 12:38 02/13/25 12:38 02/13/25 12:38 02/13/25 12:38 Lab Results Blood Type / Crossmatch: No Data to Display Complete Blood Count: No Data to Display Complete Metabolic Panel: No Data to Display Liver Function Panel: No Data to Display Coagulation Panel: No Data to Display Cardiac Panel: No Data to Display Arterial Blood Gas: No Data to Display Venous Blood Gas: No Data to Display Pancreas Panel: No Data to Display Thyroid Panel: No Data to Display Infectious Disease: No Data to Display Blood Cultures: No Data to Display Toxicology Panel: No Data to Display Anesthesia Assessment and Plan Anesthesia History Personal History: No History of Anesthesia Complications Family History: No Family History of Anesthesia Complications Exercise Tolerance Exercise Tolerance: Metabolic Equivalents>4 Cardiac & Pulmonary Exam Cardiac Exam: Normal S1/S2 Heart Sounds Pulmonary Exam: Clear Bilateral Breath Sounds Implantable Cardiac Device Does patient have a Pacemaker or an ICD?: No Airway Exam Known Difficult Airway: No Mallampati Class: 2 Mouth Opening: Normal (> 3cm) Thyromental Distance: Greater than 3 cm Neck Range of Motion: Full ROM Neck Circumference: Thick Teeth Condition: Normal Dentition ASA Classification ASA Score: ASA 2 Emergency Case?: No NPO Status NPO Status: NPO Clears >2 hours, Solids >8 hours Anesthesia Plan Resuscitation Status: Full Code Anesthesia Technique: MAC Anesthesia Airway Planned: Natural Airway Monitors Used: Standard Monitors Preoperative Comments:: 69 yo female for cataract. Sig PMHx: HTN (lisinopril), GERD (omeprazole), hypothyroid (on replacement), never smoker. Previous Anes: - TKA, chloro spinal, prop sedation, states she got admitted due to being to sleepy. Would like an MKO.
[2025-02-13] MEDS: Tropicam./Phenyleph. (1/2.5%) 5 ML BTL OD ×3 (12:36→12:52)
[2025-02-13 12:38] VITALS: BP 165/75; PULSE 76; RESP 16; TEMP 36.4; O2SAT 99
[2025-02-13 12:54] VITALS: BMI 29.9
[2025-02-13] MEDS: Lidocaine 1% Pres-Free 5 ML VIAL (13:12)
[2025-02-13] MEDS: Duovisc Viscoelastic System EACH 1 EACH (13:12)
[2025-02-13] MEDS: Moxifloxacin-PF 1 MG/ML VIAL (13:13)
[2025-02-13] MEDS: Phenylephrine/Lidocaine (15/10) MG/ML 1 ML VIAL (13:13)
[2025-02-13] MEDS: Balanced Salt Soln.-PLUS 500 ML BAG OP (13:14)
[2025-02-13] MEDS: Povidone-Iodine Ophth 30 ML BTL (13:14)
[2025-02-13] MEDS: Prednisolone 1%, Moxifloxacin 0.5%, Bromfenac 0.09% 5.6ML BTL OD (13:14)
[2025-02-13] MEDS: Tetracaine 0.5% 4 ML BTL OD (13:15)
--- NOTE | 2025-02-13 13:34 | W.PM.DSUDISC ---
Date of service: 02/13/25 Discharge Plan Disposition Patient Disposition: Home Discharge Details Attending Provider: Ge Chirinos Primary Care Provider: Cee Parekh [place] Meds and New Rx's Prescriptions: No Action acetaminophen 500 mg tablet 1,000 mg PO Q8H PRN Qty: 90 0RF Rx Instructions: Take two tablets up to every 8 hours as needed for pain celecoxib [Celebrex] 200 mg capsule 200 mg PO BID PRN (Reason: pain) Qty: 60 0RF Rx Instructions: Take one tablet twice daily for pain and inflammation levothyroxine 50 mcg capsule 50 mcg PO DAILY lisinopril 10 mg tablet 10 mg PO DAILY omeprazole 20 mg capsule,delayed release(DR/EC) 20 mg PO DAILY Metamucil 3.4 gram/5.4 gram powder 1 tbsp PO DAILY Rx Instructions: mix into at least 8 oz of water or juice before administering diphenhydramine HCl [Allergy (diphenhydramine)] 25 mg capsule 25 mg PO QHS PRN Discharge Instructions Stand Alone Forms: [facility] Post-Op CataractTashia (DSU) Discharge Orders Discharge Orders: Discharge Order (Routine); Ordered 02/13/25 Ordered By: Ge Chirinos DS: Diagnosis Discharge Diagnosis (1) Posterior subcapsular age-related cataract, right eye: Status: Resolved (2) Nuclear age-related cataract, right eye: Status: Resolved
--- NOTE | 2025-02-13 13:34 | W.PM.OP ---
Operative Note Operative Note PRE-OP DIAGNOSIS: Nuclear/posterior subcapsular cataract, right eye POST-OP DIAGNOSIS: same PROCEDURE: Cataract extraction using phacoemulsification with intraocular lens implant, right eye SURGEON: Ge Chirinos ANESTHESIA TYPE: Local By Surgeon and MAC Refer to Anesthesia Record ESTIMATED BLOOD LOSS: 0 PATHOLOGY: none sent COMPLICATIONS: None Patient was transported to: same day Patient's condition: stable Implants: Walker Clareon [id number] Indications: Progressive decreased vision due to cataract, right eye Procedure Description: CATARACT SURGERY OPERATIVE REPORT PREOPERATIVE DIAGNOSIS: Nuclear/posterior subcapsular cataract, right eye POSTOPERATIVE DIAGNOSIS: Same OPERATION: Cataract extraction using phacoemulsification with posterior chamber intraocular lens implant, right eye. IOL: IOL Customer Operations Representative/Model: Walker Clareon [id number] IOL Power: + 26.5 diopters IOL Serial Number: [id number] Optic Diameter: 6.0mm Haptic/Overall Diameter: 13.0mm PHACO INFO: Walker ParasitXurion Vision System with OZil and Active Fluidics Cumulative Dispersed Energy (CDE): 0.85 seconds SURGEON: Ge Chirinos MD, ERICH ANESTHESIA: Monitored Anesthesia Care (MAC), with local sub-tenon's anesthetic infiltration COMPLICATIONS: None SPECIMENS: None INDICATIONS FOR PROCEDURE: The patient is a 69-year-old lady with history of diminished visual acuity in her right eye secondary to the development of nuclear/posterior subcapsular cataract. She has a history of high hyperopia. The option of cataract surgery was offered to the patient and she wished to proceed. See office notes for detailed information. PROCEDURE: The correct surgical eye was identified and marked as the right eye and the pupil was dilated in the preoperative area using mydriatics and cycloplegics. The dilated pupil size was 8.0 mm. Oral sedation was administered in the form of an Imprimis MKO Melt (midazolam 3mg/ketamine 25mg/ondansetron 2mg). . The patient was brought to the operating room where cardiopulmonary monitoring was instituted and surgical time-out was performed, confirming the correct operative eye and IOL power. Topical anesthesia was administered and ophthalmic povidone-iodine 5% was instilled into the conjunctival fornices. The sangeeta-ocular area was prepped with Betadine 10% solution and draped in the usual sterile fashion for intraocular surgery, including an aperture drape. A Tegaderm transparent film dressing was cut in half and used to cover the lashes and lid margins. Care was taken to sequester the lashes and lid margins under the Tegaderm dressing. A lid speculum was placed between the lids of the operative eye and the Walker LuxOR Revalia operating microscope was maneuvered into position. Elmo scissors were then used to make a conjunctival buttonhole approximately 6mm posterior to the limbus in the inferonasal quadrant. Blunt dissection was carried out to expose bare sclera, and a blunt-tipped sub-tenon?s anesthesia cannula was introduced and passed posteriorly along the globe where non-preserved plain lidocaine was injected into posterior sub-Tenon?s space. A sideport knife was used to make a paracentesis port. Intraocular phenylephrine/lidocaine was injected into the anterior chamber. The anterior chamber was then filled with viscoelastic. A keratome knife was used to construct a two--plane clear corneal tunnel extending 2.0mm into clear cornea. A flap was raised on the anterior capsule and capsulorhexis forceps were used to complete a continuous curvilinear capsulorhexis of 5.8 mm. Balanced salt solution was then used to perform cortical cleaving hydrodissection and nuclear hydrodelineation until the lens could be freely rotated within the capsular bag. The lens nucleus was then disassembled and removed within the capsular bag and iris plane using phacoemulsification. Residual cortical material was removed using the I/A handpiece. The posterior capsule was carefully polished to remove as much residual lens epithelial cells as safely possible. The capsular bag was then inflated and the anterior chamber deepened with cohesive viscoelastic. The lens implant described above was inserted into the capsular bag using the Walker Autonome Injector. A Kuglen hook was used to dial the IOL into position. Residual viscoelastic was then removed first from posterior to the IOL, then from the anterior chamber using the I/A handpiece. The lens implant was noted to center nicely within the capsular bag. The incisions were stromally hydrated, and the anterior chamber was reformed using BSS. Then 0.5cc of moxifloxacin 1.0mg/ml were injected into the capsular bag and anterior chamber. The incisions were checked with a Weck spear and found to be secure. Several drops of ophthalmic povidone-iodine 5% were then applied to the eye followed by two drops of combination steroid/NSAID/antibiotic solution. The drapes were removed and a clear plastic protective eye shield was placed over the eye. The patient was then returned to Same Day Surgery in stable condition. Date of Procedure: 02/13/25
[2025-02-13 13:35] VITALS: BP 169/80; PULSE 74; RESP 16; TEMP 36.6; O2SAT 94
[2025-02-13 13:54] VITALS: BP 147/91; PULSE 77; RESP 18; TEMP 36.6; O2SAT 96
--- NOTE | 2025-02-13 14:24 | W.ANESPOSTOP ---
Postoperative Evaluation Date, Time and Location Date Performed: 02/13/25 Time Performed: 13:35 Patient Location: Day Surgery Unit Vital Signs Most Recent Imported Vital Signs: Most Recent Vital Signs Temp Pulse Resp BP Pulse Ox 36.6 C 77 18 147/91 H 96 02/13/25 13:54 02/13/25 13:54 02/13/25 13:54 02/13/25 13:54 02/13/25 13:54 Pain Score Most Recent Pain Score: Most Recent Pain Score Pain Level 0 02/13/25 13:35 Assessment Mental Status: Awake (Alert & Oriented to Patient Baseline) Airway and Respiratory Function: Patent airway with normal (patient baseline) respiratory exam Cardiovascular Function: Hemodynamically Stable Hydration Status: Adequately Hydrated Nausea & Vomiting: No Nausea or Vomiting Pain: Pt. Denies Any Pain Peripheral Nerve Block: Patient did not receive a nerve block
== END 2025-02-13 14:05 | disposition home or self-care (01) ==
LOC: SUR 12:05
PROVIDERS: PCP Nurse Practitioner Family; Visit Provider Ophthalmology
PROC: (CPT 66984; principal; 2025-02-13 14:30)
DX: H25.041 Posterior subcapsular polar age-related cataract, right eye (principal); H25.11 Age-related nuclear cataract, right eye; I10 Essential (primary) hypertension; K21.9 Gastro-esophageal reflux disease without esophagitis
CPT/HCPCS: 66984; 00123; V2632; J2003

== ENCOUNTER → 2025-02-16 10:00 | Outpatient (BNVA) | payer MEDICARE, MEDICAID, SELFPAY | PROVIDERS: PCP Nurse Practitioner Family; Referring Provider Nurse Practitioner Family; Visit Provider Physician Assistant | DX: Z47.1 Aftercare following joint replacement surgery (principal); Z96.651 Presence of right artificial knee joint | CPT/HCPCS: 99024 ==

== ENCOUNTER 2025-02-27 06:29 | Day surgery (SDC) | payer MEDICARE, MEDICAID, SELFPAY ==
[2025-02-27] MEDS: Tropicam./Phenyleph. (1/2.5%) 5 ML BTL OS ×3 (06:45→06:57)
[2025-02-27 06:46] VITALS: BP 169/80; PULSE 72; RESP 16; TEMP 36.2; O2SAT 99
--- NOTE | 2025-02-27 07:16 | ANES.PREOP_ITS ---
General Info Date of Service Date Performed: 02/27/25 Height: 5 ft Weight: 73.3 kg Body Mass Index (BMI): 31.5 Surgical Procedure: Operation Date: 02/27/25 08:40 Proposed Procedure Side Surgeon p Cataract Extraction with IOL Implant Left Ge Chirinos MD Meds Allergies and Home Medications Allergies Allergy/AdvReac Type Severity Reaction Status Date / Time animal dander Allergy Mild sneezing Verified 02/27/25 06:50 house dust Allergy Mild sneezing Verified 02/27/25 06:50 Home Medication ?Medication ?Instructions ?Recorded levothyroxine 50 mcg capsule 50 mcg PO DAILY 03/05/24 lisinopril 10 mg tablet 10 mg PO DAILY 03/05/24 omeprazole 20 mg capsule,delayed 20 mg PO DAILY 03/05/24 release diphenhydramine HCl 25 mg capsule 25 mg PO QHS PRN 11/13/24 (Allergy (diphenhydramine)) psyllium husk 3.4 gram/5.4 gram 1 tbsp PO DAILY 11/13/24 oral powder (Metamucil) acetaminophen 500 mg tablet 1,000 mg (2 x 500 mg) PO Q8H PRN 12/08/24 pain #90 tabs Current Visit Medications: Current Medications Generic Name Dose Route Start Last Admin Trade Name Freq PRN Reason Stop Dose Admin Acetaminophen 1,000 mg 02/27/25 06:00 Acetaminophen 500 Mg Tab PO 03/29/25 05:59 Q4H PRN PRN Balanced Salt Solution 500 ml 02/27/25 06:00 Balanced Salt Soln.-Plus 500 Ml Bag OP 03/29/25 05:59 DIRECTED [facility] Miscellaneous Medication 0 ml 02/27/25 06:00 Prednisolone 1%, Moxifloxacin 0.5%, Bromfenac 0.09% 5.6ml Btl OS 03/29/25 05:59 DIRECTED [facility] Miscellaneous Medication 0 ml 02/27/25 06:00 02/27/25 06:57 Tropicam./Phenyleph. (1/2.5%) 5 Ml Btl OS 03/29/25 05:59 1 drp DIRECTED [facility] Administration Tetracaine HCl 0 ml 02/27/25 06:00 Tetracaine 0.5% 4 Ml Btl OS 03/29/25 05:59 DIRECTED [facility] PFSH Active Problems Active Problems: Problem Status Onset Code Posterior subcapsular age-related cataract, right eye Resolved H25.041 Nuclear age-related cataract, right eye Resolved H25.11 History of total right knee replacement Acute 11/25/24 Z96.651 Hypertension Chronic I10 Hypothyroidism Chronic E03.9 Medical History Medical History GERD (gastroesophageal reflux disease) Hemorrhage of rectum and anus Diverticular disease Allergic rhinitis Surgical History Surgical History Hx of tubal ligation History of [facility] H/O partial thyroidectomy 2007 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 thyroidectomy Tobacco Smoking/Tobacco Use Status: Never Alcohol Alcohol Intake: never Substance Use Substance use: Never Substance use type: does not use Vital Signs and Lab Results Vital Signs Most Recent Vital Signs in EMR: Most Recent Vital Signs Temp Pulse Resp BP Pulse Ox 36.2 C L 72 16 169/80 H 99 02/27/25 06:46 02/27/25 06:46 02/27/25 06:46 02/27/25 06:46 02/27/25 06:46 Lab Results Blood Type / Crossmatch: No Data to Display Complete Blood Count: No Data to Display Complete Metabolic Panel: No Data to Display Liver Function Panel: No Data to Display Coagulation Panel: No Data to Display Cardiac Panel: No Data to Display Arterial Blood Gas: No Data to Display Venous Blood Gas: No Data to Display Pancreas Panel: No Data to Display Thyroid Panel: No Data to Display Infectious Disease: No Data to Display Blood Cultures: No Data to Display Toxicology Panel: No Data to Display Anesthesia Assessment and Plan Anesthesia History Personal History: No History of Anesthesia Complications Family History: No Family History of Anesthesia Complications Exercise Tolerance Exercise Tolerance: Metabolic Equivalents>4 Cardiac & Pulmonary Exam Cardiac Exam: Normal S1/S2 Heart Sounds Pulmonary Exam: Clear Bilateral Breath Sounds Implantable Cardiac Device Does patient have a Pacemaker or an ICD?: No Airway Exam Known Difficult Airway: No Mallampati Class: 2 Mouth Opening: Normal (> 3cm) Thyromental Distance: Greater than 3 cm Neck Range of Motion: Full ROM Neck Circumference: Thick Teeth Condition: Normal Dentition ASA Classification ASA Score: ASA 2 Emergency Case?: No NPO Status NPO Status: NPO Clears >2 hours, Solids >8 hours Anesthesia Plan Resuscitation Status: Full Code Anesthesia Technique: MAC Anesthesia Airway Planned: Natural Airway Monitors Used: Standard Monitors Preoperative Comments:: 69 yo female for cataract. Sig PMHx: HTN (lisinopril), GERD (omeprazole), hypothyroid (on replacement), never smoker. Previous Anes: - TKA, chloro spinal, prop sedation, states she got admitted due to being to sleepy. Had an MKO on her previous CAT.
[2025-02-27 07:29] VITALS: BMI 31.5
[2025-02-27] MEDS: Tetracaine 0.5% 4 ML BTL OS (08:29)
[2025-02-27] MEDS: Povidone-Iodine Ophth 30 ML BTL (08:29)
[2025-02-27] MEDS: Lidocaine 1% Pres-Free 5 ML VIAL (08:36)
[2025-02-27] MEDS: Phenylephrine/Lidocaine (15/10) MG/ML 1 ML VIAL (08:36)
[2025-02-27] MEDS: Duovisc Viscoelastic System EACH 1 EACH (08:36)
[2025-02-27] MEDS: Balanced Salt Soln.-PLUS 500 ML BAG OP (08:37)
[2025-02-27] MEDS: Moxifloxacin-PF 1 MG/ML VIAL (08:50)
[2025-02-27] MEDS: Prednisolone 1%, Moxifloxacin 0.5%, Bromfenac 0.09% 5.6ML BTL OS (08:51)
[2025-02-27 08:57] VITALS: BP 146/78; PULSE 69; RESP 16; TEMP 36.6; O2SAT 97
--- NOTE | 2025-02-27 08:59 | W.PM.DSUDISC ---
Date of service: 02/27/25 Discharge Plan Disposition Patient Disposition: Home Discharge Details Attending Provider: Ge Chirinos Primary Care Provider: Cee Parekh Home Meds and New Rx's Prescriptions: No Action acetaminophen 500 mg tablet 1,000 mg PO Q8H PRN Qty: 90 0RF Rx Instructions: Take two tablets up to every 8 hours as needed for pain levothyroxine 50 mcg capsule 50 mcg PO DAILY lisinopril 10 mg tablet 10 mg PO DAILY omeprazole 20 mg capsule,delayed release(DR/EC) 20 mg PO DAILY Metamucil 3.4 gram/5.4 gram powder 1 tbsp PO DAILY Rx Instructions: mix into at least 8 oz of water or juice before administering diphenhydramine HCl [Allergy (diphenhydramine)] 25 mg capsule 25 mg PO QHS PRN Discharge Instructions Stand Alone Forms: [facility] Post-Op Cataract, Tashia Liang (DSU) Discharge Orders Discharge Orders: Discharge Order (Routine); Ordered 02/27/25 Ordered By: Ge Chirinos DS: Diagnosis Discharge Diagnosis (1) Nuclear age-related cataract, left eye: Status: Resolved (2) Cortical age-related cataract, left eye: Status: Resolved
--- NOTE | 2025-02-27 09:00 | W.PM.OP ---
Operative Note Operative Note PRE-OP DIAGNOSIS: Nuclear/posterior subcapsular cataract, left eye POST-OP DIAGNOSIS: same PROCEDURE: Cataract extraction using phacoemulsification with intraocular lens implant, left eye SURGEON: Ge Chirinos ANESTHESIA TYPE: Local By Surgeon and MAC Refer to Anesthesia Record PATHOLOGY: none sent COMPLICATIONS: None Patient was transported to: same day Patient's condition: stable Implants: Walker Clareon [id number] Indications: Progressive decreased vision due to cataract, left eye Procedure Description: CATARACT SURGERY OPERATIVE REPORT PREOPERATIVE DIAGNOSIS: Nuclear/posterior subcapsular cataract, left eye POSTOPERATIVE DIAGNOSIS: Same OPERATION: Cataract extraction using phacoemulsification with posterior chamber intraocular lens implant, left eye. IOL: IOL Oncology Transplant Network Manager/Model: Walker Clareon [id number] IOL Power: + 27.0 diopters IOL Serial Number: [id number] Optic Diameter: 6.0mm Haptic/Overall Diameter: 13.0mm PHACO INFO: Walker [employer]urion Vision System with OZil and Active Fluidics Cumulative Dispersed Energy (CDE): 3.61 seconds SURGEON: Ge Chirinos MD, ERICH ANESTHESIA: Monitored Anesthesia Care (MAC), with local sub-tenon's anesthetic infiltration COMPLICATIONS: None SPECIMENS: None INDICATIONS FOR PROCEDURE: The patient is a 69-year-old lady with history of diminished visual acuity in her left eye secondary to the development of nuclear/posterior subcapsular cataract. She has previously undergone cataract surgery in the right eye and is doing well postoperatively. She now presents for cataract surgery in the left eye. See office notes for detailed information. PROCEDURE: The correct surgical eye was identified and marked as the left eye and the pupil was dilated in the preoperative area using mydriatics and cycloplegics. The dilated pupil size was 7.0 mm. Oral sedation was administered in the form of an Imprimis MKO Melt (midazolam 3mg/ketamine 25mg/ondansetron 2mg). The patient was brought to the operating room where cardiopulmonary monitoring was instituted and surgical time-out was performed, confirming the correct operative eye and IOL power. Topical anesthesia was administered and ophthalmic povidone-iodine 5% was instilled into the conjunctival fornices. The sangeeta-ocular area was prepped with Betadine 10% solution and draped in the usual sterile fashion for intraocular surgery, including an aperture drape. A Tegaderm transparent film dressing was cut in half and used to cover the lashes and lid margins. Care was taken to sequester the lashes and lid margins under the Tegaderm dressing. A lid speculum was placed between the lids of the operative eye and the Walker LuxOR Revalia operating microscope was maneuvered into position. Elmo scissors were then used to make a conjunctival buttonhole approximately 6mm posterior to the limbus in the inferonasal quadrant. Blunt dissection was carried out to expose bare sclera, and a blunt-tipped sub-tenon?s anesthesia cannula was introduced and passed posteriorly along the globe where non-preserved plain lidocaine was injected into posterior sub-Tenon?s space. A sideport knife was used to make a paracentesis port. Intraocular phenylephrine/lidocaine was injected into the anterior chamber. The anterior chamber was then filled with viscoelastic. A keratome knife was used construct a two-plane clear corneal tunnel extending 2.0mm into clear cornea. A flap was raised on the anterior capsule and capsulorhexis forceps were used to complete a continuous curvilinear capsulorhexis of 5.5 mm. Balanced salt solution was then used to perform cortical cleaving hydrodissection and nuclear hydrodelineation until the lens could be freely rotated within the capsular bag. The lens nucleus was then disassembled and removed within the capsular bag and iris plane using phacoemulsification. Residual cortical material was removed using the irrigation/aspiration handpiece. The posterior capsule was carefully polished to remove as much residual lens epithelial cells as safely possible. The capsular bag was then inflated and the anterior chamber deepened with viscoelastic. The lens implant described above was inserted into the capsular bag using the Walker Autonome Injector. A Kuglen hook was used to dial the IOL into position. Residual viscoelastic was then removed first from posterior to the IOL, then from the anterior chamber using the I/A handpiece. The lens implant was noted to center nicely within the capsular bag. The incisions were stromally hydrated, and the anterior chamber was reformed using BSS. Then 0.5cc of moxifloxacin 1.0mg/ml were injected into the capsular bag and anterior chamber. The incisions were checked with a Weck spear and found to be secure. Several drops of ophthalmic povidone-iodine 5% were then applied to the eye followed by two drops of combination steroid/NSAID/antibiotic solution. The drapes were removed and a clear plastic protective eye shield was placed over the eye. The patient was then returned to Same Day Surgery in stable condition. Date of Procedure: 02/27/25
[2025-02-27 09:15] VITALS: BP 148/83; PULSE 72; RESP 16; TEMP 36.6; O2SAT 97
--- NOTE | 2025-02-27 09:29 | W.ANESPOSTOP ---
Postoperative Evaluation Date, Time and Location Date Performed: 02/27/25 Time Performed: 09:15 Patient Location: Day Surgery Unit Vital Signs Most Recent Imported Vital Signs: Most Recent Vital Signs Temp Pulse Resp BP Pulse Ox 36.6 C 72 16 148/83 H 97 02/27/25 09:15 02/27/25 09:15 02/27/25 09:15 02/27/25 09:15 02/27/25 09:15 Pain Score Most Recent Pain Score: Most Recent Pain Score Pain Level 0 02/27/25 09:15 Assessment Mental Status: Awake (Alert & Oriented to Patient Baseline) Airway and Respiratory Function: Patent airway with normal (patient baseline) respiratory exam Cardiovascular Function: Hemodynamically Stable Hydration Status: Adequately Hydrated Nausea & Vomiting: No Nausea or Vomiting Pain: Pt. Denies Any Pain Peripheral Nerve Block: Other (Local by Dr. Chirinos)
== END 2025-02-27 09:23 | disposition home or self-care (01) ==
LOC: SUR 06:29
PROVIDERS: PCP Nurse Practitioner Family; Visit Provider Ophthalmology
PROC: (CPT 66984; principal; 2025-02-27 08:30)
DX: H25.12 Age-related nuclear cataract, left eye (principal); H25.012 Cortical age-related cataract, left eye; K21.9 Gastro-esophageal reflux disease without esophagitis; Z98.41 Cataract extraction status, right eye
CPT/HCPCS: 66984; 00123; V2632; J2003